=== PATIENT | male | born 1990 | race Caucasian/White ===

== ENCOUNTER 2020-02-16 22:11 | Outpatient (REF) | payer BC, SELFPAY ==
[2020-02-16 22:40] LABS: Anion Gap 10.2 mmol/L (3-11); BUN 17 mg/dL (7-18); CO2 26.8 mmol/L (21.0-32.0); CREATININE 1.18 mg/dL (0.70-1.30); Calcium 8.9 mg/dL (8.5-10.1); Chloride 100 mmol/L (98-107); FREE T4 0.87 ng/dL (0.76-1.46); Glucose 116 mg/dL (74-106); Potassium 3.9 mmol/L (3.5-5.1); Sodium 137 mmol/L (136-145); TSH 2.25 uIU/mL (0.36-3.74)
[2020-02-16 22:54] LABS: Calculated LDL 91 mg/dL (<100); Cholesterol 176 mg/dL (<200); HDL Cholesterol 60 mg/dL (40-60); Triglyceride 129 mg/dL (<150)
== END 2020-02-16 22:31 ==
LOC: LBN 22:11
PROVIDERS: PCP Nurse Practitioner Family; Visit Provider Nurse Practitioner Family
DX: Z76.89 Persons encountering health services in other specified circumstances (principal); E04.9 Nontoxic goiter, unspecified
CPT/HCPCS: 80048; 80061; 84439; 84443

== ENCOUNTER 2020-02-27 03:39 | Outpatient (CLI) | payer BC, SELFPAY ==
--- NOTE | 2020-02-27 08:15 | DI.US_ITS ---
EXAM: US THYROID CLINICAL HISTORY: ?enlarged thyroid gland,E04.9 TECHNIQUE: Ultrasound performed using standard protocol. COMPARISON: No exams were available for comparison FINDINGS: Thyroid ultrasound was performed according to the usual protocol. Right thyroid lobe measures 62 x 2 2 x 31 millimeters and left thyroid lobe measures 57 x 20 x 18 millimeters. There are multiple solid heterogeneous echogenic neck masses which are nonspecific, this may represen t pathological adenopathy. Please correlate with any known disease process in this patient. There is a dominant mass of the right thyroid lobe measuring 39 x 37 x 28 millimeters. This is solid , isoechoic, has smooth margins and contains punctate echogenic foci. This has a TI RADS score consi stent with TI RADS level 5, highly suspicious, fine needle aspiration recommended for lesions greater than 1 cm. Additionally a lower pole right thyroid lobe mass measures 18 millimeters in diameter and has a TR 5 score, FNA of this lesion is recommended as well. IMPRESSION: At least 2 suspicious masses are identified and multinodular goiter. Fine needle aspiration recommen ded. Additionally, multiple bilateral solid masses are seen in the cervical region bilaterally, ques tion adenopathy, please correlate clinically. Additional evaluation with CT may be considered if cli nically appropriate. DATA REPOSITORY:
== END 2020-02-27 03:59 ==
PROVIDERS: PCP Nurse Practitioner Family; Visit Provider Nurse Practitioner Family
DX: E04.2 Nontoxic multinodular goiter (principal); E07.89 Other specified disorders of thyroid
CPT/HCPCS: 76536

== ENCOUNTER 2022-09-29 16:50 | Outpatient (REF) | payer OTHER, SELFPAY ==
[2022-09-29 20:06] LABS: Creatinine,Urine 34.26 mg/dL
[2022-09-29 20:07] LABS: Creatinine,24hr Ur 1.27 g/24hr (0.95-2.49); Total Volume 3785 ml
[2022-10-01 09:44] LABS: Calcium Urine 4.9 mg/dL (See Note); Calcium Urine 24 hr 185 mg/24hrs (100-300); Timed Urine Volume 3785 mL
== END 2022-09-29 16:51 | disposition home or self-care (01) ==
LOC: LBN 16:50
PROVIDERS: PCP Nurse Practitioner Family; Visit Provider Student in an Organized Health Care Education/Training Program
DX: E89.2 Postprocedural hypoparathyroidism (principal)
CPT/HCPCS: 81050; 82340; 82570

== ENCOUNTER 2024-04-09 02:56 | Outpatient (CLI) | payer OTHER, SELFPAY ==
[2024-04-09 16:02] LABS: Abs Immature Grans 0.01 10^3/uL (0.0-0.06); Absolute Basophil Count 0.05 10^3/uL (0.0-0.2); Absolute Eosinophil Count 0.06 10^3/uL (0.0-0.7); Absolute Lymphocyte Count 1.48 10^3/uL (1.2-3.4); Absolute Monocyte Count 0.63 10^3/uL (0.1-0.8); Absolute Neutrophil Count 4.34 10^3/uL (1.2-6.7); Basophils % 0.8 %; Eosinophils % 0.9 %; HCT 42.6 % (40.0-50.0); HGB 14.6 g/dL (13.5-17.5); Immature Grans % 0.2 %; Lymphocytes % 22.5 %; MCH 31.7 pg (27.0-33.0); MCHC 34.3 % (32.0-36.0); MCV 92 fL (80-95); MPV 9.4 fL (8.0-11.0); Monocytes % 9.6 %; Platelet Count 220 10^3/uL (130-400); RBC 4.61 10^6/uL (4.36-5.78); RDW 12.8 % (11.8-14.1); RDW-SD 43.8 fL; WBC 6.57 10^3/uL (4.4-10.8)
[2024-04-09 16:27] LABS: Hemoglobin A1C 5.1 % (<5.7)
[2024-04-09 17:19] LABS: Anion Gap 10.9 mmol/L (3-11); BUN 17 mg/dL (7-18); CO2 28.1 mmol/L (21.0-32.0); CREATININE 1.2 mg/dL (0.70-1.30); Calcium 8.4 mg/dL (8.5-10.1); Calculated LDL 78 mg/dL (<100); Chloride 102 mmol/L (98-107); Cholesterol 171 mg/dL (<200); Estimated GFR 81.89 (mL/min/1.73m2); Glucose 100 mg/dL (74-106); HDL Cholesterol 75 mg/dL (40-60); Potassium 3.8 mmol/L (3.5-5.1); Sodium 141 mmol/L (136-145); Triglyceride 91 mg/dL (<150)
== END 2024-04-09 02:57 | disposition home or self-care (01) ==
LOC: LBO 02:57
PROVIDERS: PCP Nurse Practitioner Family; Visit Provider Nurse Practitioner Family
DX: Z00.00 Encounter for general adult medical examination without abnormal findings (principal); Z85.850 Personal history of malignant neoplasm of thyroid
CPT/HCPCS: 36415; 80048; 80061; 83036; 85025